=== PATIENT | male | born 1980 | race Caucasian/White ===

== ENCOUNTER → 2019-01-21 14:17 | Outpatient (CLI) | payer OTHER, SELFPAY ==
--- NOTE | 2019-01-21 14:19 | DI.US.S_ITS ---
PROCEDURE: US ABDOMEN LIMITED INDICATIONS: RIGHT INGUINAL BULGE AND INTERMITTENT PAIN. Patient reports intermittent right groin pain over the last few weeks. Patient states he does not feel a bulge or lump. TECHNIQUE: Real-time focused scanning was performed of the right inguinal region, with image documentation. COMPARISON: None. FINDINGS: Targeted ultrasound of the right inguinal region in the area of patient's reported focal concern demonstrates no obvious hernia or fascial defect. No underlying mass or abnormality is identified by ultrasound in the patient's indicated area of concern. IMPRESSION: Targeted ultrasound of the right inguinal region in the area of patient's reported focal concern demonstrates no obvious hernia, fascial defect, or underlying mass or abnormality to explain patient's reported intermittent right groin pain. Consider CT for further evaluation if there is continued clinical concern. Dictated by: Nehemiah Lee M.D. on 01/21/2019 at 17:49 Approved by: Nehemiah Lee M.D. on 01/21/2019 at 17:53
== END ==
PROVIDERS: PCP Registered Nurse; Visit Provider Nurse Practitioner
DX: R10.31 Right lower quadrant pain (principal)
CPT/HCPCS: 76705

== ENCOUNTER → 2021-12-14 16:22 | Outpatient (CLI) | payer OTHER, SELFPAY ==
--- NOTE | 2021-12-14 16:23 | DI.RAD.S_ITS ---
PROCEDURE: XR HAND RT MIN 3V INDICATIONS: L I hand injury TECHNIQUE: 3 views of the hand(s) acquired. COMPARISON: None. FINDINGS: Bones: No fractures or dislocations. Carpal bones are normally aligned. No suspicious bony lesions. Soft tissues: No suspicious soft tissue calcifications. IMPRESSION: No acute right hand fracture or dislocation. No gross soft tissue abnormalities. Dictated by: Jose Angelo M.D. on 12/14/2021 at 17:09 Approved by: Jose Angelo M.D. on 12/14/2021 at 17:09
== END ==
PROVIDERS: PCP Registered Nurse; Referring Provider Nurse Practitioner Family; Visit Provider Nurse Practitioner Family
DX: S66.911A Strain of unspecified muscle, fascia and tendon at wrist and hand level, right hand, initial encounter (principal); X58.XXXA Exposure to other specified factors, initial encounter
CPT/HCPCS: 73130

== ENCOUNTER → 2022-12-05 18:46 | Outpatient (CLI) | payer OTHER, SELFPAY ==
--- NOTE | 2022-12-05 | DI.MRI.S_ITS ---
PROCEDURE: MR CERVICAL SPINE WO CON INDICATIONS: Spondylolisthesis, cervical region TECHNIQUE: Noncontrast sagittal T1 spin echo and T2 fast spin echo, sagittal STIR, foraminal oblique sagittal T2 fast spin echo, and axial gradient echo or T2 fast spin echo through the cervical spine. COMPARISON: [facility], , C-SPINE WITHOUT CONTRAST, 04/04/2016, 19:31. FINDINGS: Image quality: Excellent. Alignment and Curvature: Straightening of normal cervical lordosis. Bone Marrow: Marrow demonstrates normal overall signal. Disc replacement at C4-C5. Spinal Cord: Visualized spinal cord has normal size and signal. No cerebellar tonsillar herniation. Paraspinous Soft Tissues: No paravertebral masses. Prevertebral soft tissues are normal in thickness. C2-C3: Normal appearance. C3-C4: Disc desiccation height loss with small posterior disc osteophyte complex. Abutment of the ventral cord. Mild central canal stenosis. Facet and uncovertebral arthropathy. Mild bilateral neural foraminal stenosis. C4-C5: Status post disc replacement. Mild residual effacement of the thecal sac. No significant central canal stenosis. Facet and uncovertebral arthropathy. Stable moderate right and mild left neural foraminal stenosis. C5-C6: No central canal or neural foraminal stenosis. C6-C7: No central canal stenosis. Facet and uncovertebral arthropathy. Mild bilateral neural foraminal stenosis. C7-T1: Normal appearance. IMPRESSION: 1. Postsurgical changes from C4-C5 disc replacement. There is resolution of prior central canal stenosis. There is mild residual effacement of the thecal sac. 2. Mild to moderate degenerative changes of the cervical spine as described above. Dictated by: Inderjit Eaton M.D. on 12/06/2022 at 8:33 Approved by: Inderjit Eaton M.D. on 12/06/2022 at 8:38
== END ==
PROVIDERS: PCP Registered Nurse; Referring Provider Orthopaedic Surgery Orthopaedic Surgery of the Spine; Visit Provider Orthopaedic Surgery Orthopaedic Surgery of the Spine
DX: M47.812 Spondylosis without myelopathy or radiculopathy, cervical region (principal); M43.12 Spondylolisthesis, cervical region
CPT/HCPCS: 72141